=== PATIENT | female | born 1945 | race Hispanic/Latino ===

== ENCOUNTER → 2018-03-10 | Outpatient (CLI) | payer OTHER | END | disposition home or self-care (01) | LOC: RAH 10:42 | PROVIDERS: ATTEND Family Medicine | DX: R92.8 Other abnormal and inconclusive findings on diagnostic imaging of breast (principal) | CPT/HCPCS: 77066 ==

== ENCOUNTER → 2021-11-13 | Outpatient (CLI) | payer OTHER | END | disposition home or self-care (01) | LOC: RAH 10:05 | PROVIDERS: ATTEND Family Medicine | DX: Z12.31 Encounter for screening mammogram for malignant neoplasm of breast (principal) | CPT/HCPCS: 77067 ==

== ENCOUNTER 2022-03-05 16:35 | Emergency (ER) | payer MEDICARE, OTHER ==
[~2022-03-05] VITALS: Ht 165.1 cm; Wt 74.8 kg
[2022-03-05 16:39] VITALS: BP 139/69
[2022-03-05 16:57] LABS: APPEARANCE,URINE Cloudy (CLEAR); BILIRUBIN,URINE Negative (NEGATIVE); COLOR,URINE Yellow (YELLOW); GLUCOSE, URINE (UA) Negative (NEGATIVE); KETONES,URINE Negative (NEGATIVE); LEUKOCYTE ESTERASE ,URINE Large (NEGATIVE); NITRATE,URINE Positive (NEGATIVE); OCCULT BLOOD,URINE Trace (NEGATIVE); PROTEIN,URINE Negative (NEGATIVE); UROBILINOGEN,URINE 0.2 mg/dL (0.2-1.0)
[2022-03-05] MEDS ORDERED: HYDROCODONE/ACETAMINOPHEN 5/325 MG TAB PO ONE (17:00)
[2022-03-05] MEDS ORDERED: KETOROLAC 30MG VIAL (30MG/ML) IM ONE (17:00)
[2022-03-05 17:21] LABS: BACTERIA,URINE Moderate /HPF (None Seen)
[2022-03-05 17:22] LABS: SQUAMOUS EPITHELIAL CELL,UR 0-2 /HPF (0-2)
[2022-03-05] MEDS ORDERED: CEFTRIAXONE 1G VIAL IM ONE (18:00)
[2022-03-05] MEDS ORDERED: NAPR-1180 PO (18:51)
[2022-03-05] MEDS ORDERED: CEPH500B PO (18:51)
[2022-03-05] MEDS ORDERED: LIDOCAINE HCL-MPF 1% 2ML VIAL ONE (18:54)
== END 2022-03-05 19:17 | disposition home or self-care (01) ==
LOC: EDH 16:35
DX: S80.01XA Contusion of right knee, initial encounter (principal); M25.761 Osteophyte, right knee; N39.0 Urinary tract infection, site not specified; Z88.0 Allergy status to penicillin; Z98.890 Other specified postprocedural states; X50.1XXA Overexertion from prolonged static or awkward postures, initial encounter; Y93.89 Activity, other specified; Y92.89 Other specified places as the place of occurrence of the external cause; Y99.8 Other external cause status
CPT/HCPCS: 73562; 81001; 87077; 87088; 87186; 96372 ×2; 99284; J0696; J1885; J3490